=== PATIENT | female | born 1985 | race Caucasian/White ===

== ENCOUNTER → 2021-07-20 13:42 | Outpatient (CLI) | payer OTHER, SELFPAY ==
--- NOTE | ~2021-07-20 | US_ITS ---
EXAMINATION: US OB /maternal detail DATE: 07/20/2021 14:22 INDICATION: anatomic survey. TECHNIQUE: Real-time ultrasound of the pelvis was performed. COMPARISON: None. FINDINGS: There is a single living fetus in variable presentation. The placenta is fundal. heart rate is 138 beats per minute (bpm). The amniotic fluid volume is subjectively normal. The following biometric data were obtained: Biparietal diameter (BPD): 4.9 cm; head circumference (HC): 18.6 cm; abdominal circumference (AC): 16 .1 cm; femur length (FL): 3.6 cm. These measurements are concordant. Estimated weight is 406 g +/- 61 g, which correlates with 90th percentile when 12/05/21 is used as estimated date of delivery. As single measurements, these parameters are each equal to the following estimated gestational ages w ith ranges of +/- 2 standard deviations: BPD: 20 weeks 5 days (19 weeks 0 days - 22 weeks 3 days). HC: 20 weeks 6 days (19 weeks 3 days - 22 weeks 3 days). AC: 21 weeks 1 days (19 weeks 1 days - 23 weeks 2 days). FL: 21 weeks 2 days (19 weeks 4 days - 23 weeks 1 days). estimated gestational age based solely on measurements from this exam is 21 weeks 0 days +/- 1 weeks 3 days. The cerebral ventricles, cerebellum, cisterna magna, lip, and visualized portions of the spine are no rmal. The heart is normal. The diaphragm, stomach, kidneys, and bladder are normal. There are two umb ilical arteries to yield a 3-vessel cord. The cord insertion is normal. IMPRESSION: 1. Single living fetus in variable presentation. 2. Estimated weight is 406 g +/- 61 g, which correlates with 90th percentile when 12/05/21 is u sed as estimated date of delivery. 3. Normal anatomic survey. Reviewed, dictated and finalized at location A. F OF SURGERY IMPRESSION: 1. Single living fetus in variable presentation. 2. Estimated weight is 406 g +/- 61 g, which correlates with 90th percen tile when 12/05/21 is used as estimated date of delivery. 3. Normal anatomic survey.
== END ==
DX: Z36.9 Encounter for antenatal screening, unspecified (principal); Z3A.21 21 weeks gestation of pregnancy
CPT/HCPCS: 76805